=== PATIENT | female | born 1960 ===

== ENCOUNTER 2018-06-17 02:44 | Observation (INO) | payer MEDICAID ==
[2018-06-17 02:45] VITALS: BMI 30.2
[2018-06-17] MEDS ORDERED: Sodium Chloride 0.9% 1,000 ML ONE ×3 (02:51→06:56)
[2018-06-17] MEDS ORDERED: Sodium Chloride 0.9% 1,000 ML IV ONE ×3 (03:03→04:04)
--- NOTE | 2018-06-17 03:13 | C.PDOC ---
History Of Present Illness 58 year old female presents to the ER with a complaint of lightheadedness and dizziness. Patient states she is scheduled for an endoscopy tomorrow, she took a laxative and had 15 episodes of diarrhea followed by copious amounts of watery fluids [employer]. Patient also reports she passed out and fell, injuring her sacral area. Denies fever, chills, weakness, numbness, or incontinence. Chief Complaint (Nursing): Dizziness/Lightheaded History Per: Patient History/Exam Limitations: no limitations Onset/Duration Of Symptoms: Hrs Seizure Or Post-ictal Symptoms: None Possible Causative Factor(s): Other (Laxative) Fall Associated With With Symptoms: Yes, Positive Injury Recent travel outside of the [place]: No - Symptoms Of CVA Associated Symptoms: denies: Impaired Speech, Seizure Activity, New Vision Deficit(Left), New Vision Deficit(Right), Decreased Ability To Walk, New Confusion Past Medical History Reviewed: Historical Data, Nursing Documentation, Vital Signs - Medical History PMH: Anxiety, HTN Denies: Chronic Kidney Disease - [facility] TRANSURETH BLADD BIOPSY (12/06/13) URETHRAL DILATION (12/06/13) Family History: States: Unknown Family Hx - Social History Hx Tobacco Use: No Hx Alcohol Use: No Hx Substance Use: No - Immunization History Hx Tetanus Toxoid Vaccination: Yes Hx Influenza Vaccination: Yes Hx Pneumococcal Vaccination: Yes Review Of Systems Constitutional: Negative for: Fever, Chills Cardiovascular: Positive for: Light Headedness. Negative for: Chest Pain, Palpitations Respiratory: Negative for: Cough, Shortness of Breath Gastrointestinal: Negative for: Nausea, Vomiting Genitourinary: Negative for: Dysuria, Incontinence, Hematuria Neurological: Positive for: Dizziness. Negative for: Weakness, Numbness Physical Exam - Physical Exam Appears: Non-toxic Skin: Warm, Dry Head: Atraumatic, Normacephalic Eye(s): bilateral: Normal Inspection, PERRL, EOMI Nose: Normal Oral Mucosa: Moist Neck: Normal, No Midline Cervical Tenderness, No Paracervical Tenderness, Supple Chest: Symmetrical, No Tenderness Cardiovascular: Rhythm Regular Respiratory: Normal Breath Sounds, No Rales, No Rhonchi, No Wheezing Gastrointestinal/Abdominal: Soft, No Tenderness Back: Other (Tenderness of sacral area, no deformity) Extremity: Normal ROM (x4), Other (Small bruise on left elbow) Neurological/Psych: Oriented x3, Normal Speech Gait: Steady ED Course And Treatment - Laboratory Results Result Diagrams: 06/17/18 03:32 06/17/18 03:32 ECG: Interpreted By Me, Viewed By Me ECG Rhythm: Sinus Rhythm ECG Interpretation: Normal, No Acute Changes Interpretation Of ECG: NSR, normal tracings O2 Sat by Pulse Oximetry: 99 (Room air) Pulse Ox Interpretation: Normal - Radiology CXR: Interpreted by Me, Viewed By Me CXR Interpretation: Yes: No Acute Disease. No: Infiltrates - Other Rad sacro coccyx X-Ray: Interpreted by Me, Viewed By Me Interpretation: no fracture Progress Note: CT head, EKG, blood work, CXR, urinalysis, and sacrum x-ray ordered. IV fluids and toradol administered. Disposition Discussed With DrPablo: Iqra Le Counseled Patient/Family Regarding: Diagnosis - Disposition Referrals: [facility] [Outside] Disposition: HOME/ ROUTINE Disposition Time: 06:11 Condition: STABLE Forms: [facility] (Japanese) - POA Present On Arrival: None - Clinical Impression Clinical Impression: Dizziness, Hypotension due to hypovolemia, Syncope - Scribe Statement The provider has reviewed the documentation as recorded by the Scribe Joao Wilcox All medical record entries made by the Scribe were at my direction and personally dictated by me. I have reviewed the chart and agree that the record accurately reflects my personal performance of the history, physical exam, medical decision making, and the department course for this patient. I have also personally directed, reviewed, and agree with the discharge instructions and disposition.
[2018-06-17 03:35] LABS: BASO % 0.6 % (0.0-2.0); EOS # 0.2 K/uL (0.0-0.7); EOS % 2.6 % (0.0-4.0); HEMOGLOBIN 14.4 g/dL (11.0-16.0); LYMPH % 36.2 % (20.0-40.0); MEAN CELL VOLUME 97.9 fL (81.0-99.0); MEAN CORPUSCULAR HGB CONC 33.6 g/dL (33.0-37.0); MONO # 0.7 K/uL (0.0-0.8); MONO % 8.6 % (0.0-10.0); NEUT # 4.3 K/uL (1.8-7.0); NRBC % 0.1 % (0.0-2.0); RBC 4.36 Mil/uL (3.80-5.20); RED CELL DISTRIBUTION WIDTH 13.7 % (11.5-14.5); WHITE BLOOD COUNT 8.3 K/uL (4.8-10.8)
[2018-06-17 03:47] LABS: ALB/GLOB RATIO 1.2 (1.0-2.1); ALT/SGPT 33 U/L (9-52); AST/SGOT 45 U/L (14-36); BLOOD UREA NITROGEN 20 mg/dL (7-17); CALCIUM 9.6 mg/dl (8.6-10.4); GFR NON-AFRICAN AMERICAN 57
[2018-06-17] MEDS ORDERED: Potassium Chloride 20 mEq 100 ML ONE (04:15)
[2018-06-17] MEDS ORDERED: Bacitracin 500 Units/gm Oint Foilpak UD ONE (04:38)
[2018-06-17 06:25] LABS: BLOOD UREA NITROGEN 20 mg/dL (7-17); CALCIUM 8.3 mg/dl (8.6-10.4); GFR NON-AFRICAN AMERICAN > 60
--- NOTE | 2018-06-17 07:16 | CP.PCM.PN ---
Subjective - Date & Time of Evaluation Date of Evaluation: 06/17/18 Time of Evaluation: 07:16 - Subjective Subjective: Medicine Progress Note - Dr Seamus Le's service Patient is a 58 year old female with past medical history of L breast cancer s/p radiation, hypertension, arthritis who presented to the emergency department after having a syncopal episode at home. Patient states that she was woke up from sleep and on the way to the bathroom she passed out. Prior to the episode, she admitted to having lightheadedness and dizziness. She reports LOC but unsure whether she hit her head. Unclear how long she was down for. She reports that earlier in the evening she took go-lytely and ducolax in preparation for colonoscopy that was scheduled for today ay [facility]. She also reports having 3 episodes mid-sternal chest pain earlier in the day yesterday. Currently she reports that dizziness has improved. Feels like she is spinning. Denies fevers, chills, headaches, cp, palpitations, sob, abdominal pain, urinary symptoms. Allergies: NKDA Medications: Percocet, Losartan/HCTZ 50-12.5mg PO daily, Klonopin 0.25 prn Medical History: L breast cancer s/p radiation, hypertension, arthritis, anxiety Surgical History: C/S, D+C, Back surgery Social History: Denies alcohol, tobacco, drug use Family History: Father -prostate cancer; Sister - breast cancer, Mother - DM, HTN Objective - Vital Signs/Intake and Output Vital Signs (last 24 hours): Temp Pulse Resp BP Pulse Ox 97.7 F 89 12 125/62 99 06/17/18 02:53 06/17/18 06:12 06/17/18 06:12 06/17/18 06:12 06/17/18 06:12 - Medications Medications: Current Medications Enoxaparin Sodium (Lovenox) 40 mg SC DAILY WES Sodium Chloride (Sodium Chloride 0.9%) 1,000 mls @ 100 mls/hr IV .Q10H ONE Stop: 06/17/18 13:03 Last Admin: 06/17/18 06:55 Dose: 100 mls/hr Pantoprazole Sodium (Protonix Ec Tab) 40 mg PO DAILY WES - Labs Labs: 06/17/18 03:32 06/17/18 05:36 - Constitutional Appears: Well, No Acute Distress - Head Exam Head Exam: ATRAUMATIC, NORMAL INSPECTION - Eye Exam Eye Exam: EOMI, Normal appearance Pupil Exam: NORMAL ACCOMODATION - ENT Exam ENT Exam: Mucous Membranes Moist - Neck Exam Neck Exam: Full ROM - Respiratory Exam Respiratory Exam: Clear to Ausculation Bilateral, NORMAL BREATHING PATTERN. absent: Rales, Rhonchi, Wheezes - Cardiovascular Exam Cardiovascular Exam: REGULAR RHYTHM, +S1, +S2 - GI/Abdominal Exam GI & Abdominal Exam: Soft, Normal Bowel Sounds. absent: Guarding, Rigid, Tenderness - Extremities Exam Extremities Exam: Normal Inspection. absent: Calf Tenderness - Neurological Exam Neurological Exam: Alert, Awake, Oriented x3 - Psychiatric Exam Psychiatric exam: Normal Affect, Normal Mood - Skin Skin Exam: Dry, Normal Color, Warm Assessment and Plan - Assessment and Plan (Free Text) Assessment: Syncope, r/o Cardioneurogenic causes -Monitor on telemetry -EKG: NSR 71bpm, no ST-T wave changes -Troponins negative x 2 -CT head: suspect minimal chronic periventricular white matter ischemic changes (see full report) -Sacrum and coccyx xray - no fracture or dislocation -Echocardiogram ordered, Brain MRI and EEG ordered -Cardiology on consult, Dr Reinoso, help appreciated -Neurology on consult, Dr Ogden, help appreciated -Physical therapy ordered Diarrhea -Likely secondary to laxative use -Imodium 2mg ordered -Continue to monitor Hypokalemia -Likely secondary to GI loses -Replete as needed GI/DVT ppx: -Protonix 40mg PO daily -Lovenox 40mg SC daily Plan discussed with Dr Rey Perez DO PGY-2
[2018-06-17 08:09] LABS: HDL CHOLESTEROL 42 mg/dL (30-70)
[2018-06-17 08:17] VITALS: RESP 20
[2018-06-17 08:20] LABS: LDL CHOLESTEROL 114 mg/dL (0-129)
[2018-06-17 08:45] VITALS: O2SAT 98
[2018-06-17 08:59] LABS: PROLACTIN 20.6 ng/mL (3.0-18.9)
[2018-06-17] MEDS: Enoxaparin 40 mg Syringe SC SCH (09:07)
[2018-06-17] MEDS: Pantoprazole 40 mg EC Tab PO SCH (09:07)
--- NOTE | 2018-06-17 09:52 | RAD ---
Date of service: 06/17/2018 PROCEDURE: CHEST RADIOGRAPH, 1 VIEW HISTORY: SOB COMPARISON: 08/27/2005 FINDINGS: LUNGS: Clear. PLEURA: No pneumothorax or pleural fluid seen. CARDIOVASCULAR: There is absence of aortic atherosclerotic calcification on x-ray. Heart size within normal limits. No significant appearing pulmonary venous congestion. OSSEOUS STRUCTURES: Thoracic spondylosis. Bilateral shoulder arthrosis. VISUALIZED UPPER ABDOMEN: Right upper quadrant post cholecystectomy clips present OTHER FINDINGS: None. IMPRESSION: No acute cardiopulmonary pathology noted.
--- NOTE | 2018-06-17 09:54 | RAD ---
Date of service: 06/17/2018 PROCEDURE: Radiographs of the Sacrum and Coccyx HISTORY: injury COMPARISON: None available. TECHNIQUE: Frontal and lateral views of the sacrum and coccyx FINDINGS: BONES: Sacrum and coccyx unremarkable. No fracture or focal lesion. L5-S1 disc space narrowing with prominent marginal osteophytosis especially on the left side. SACROILIAC JOINTS: Unremarkable. Pubic symphyseal joints normal. Mild bilateral hip arthrosis. OTHER FINDINGS: Few right hemipelvic phleboliths noted. IMPRESSION: No fracture or dislocation. Senescent changes as above.
--- NOTE | 2018-06-17 09:55 | CT ---
Date of service: 06/17/2018 PROCEDURE: CT HEAD WITHOUT CONTRAST. HISTORY: passed out COMPARISON: The TECHNIQUE: Axial computed tomography images were obtained through the head/brain without intravenous contrast. Radiation dose: Total exam DLP = 1035.11 mGy-cm. This CT exam was performed using one or more of the following dose reduction techniques: Automated exposure control, adjustment of the mA and/or kV according to patient size, and/or use of iterative reconstruction technique. FINDINGS: HEMORRHAGE: No intracranial hemorrhage. BRAIN: Suspect minimal chronic periventricular white matter ischemic changes. Mild generalized volume loss. VENTRICLES: Unremarkable. No hydrocephalus. CALVARIUM: Unremarkable. PARANASAL SINUSES: Unremarkable as visualized. No significant inflammatory changes. MASTOID AIR CELLS: Unremarkable as visualized. No inflammatory changes. OTHER FINDINGS: None. IMPRESSION: Suspect minimal chronic periventricular white matter ischemic changes. Mild generalized volume loss.
--- NOTE | 2018-06-17 11:09 | CARD ---
APPROVED REPORT Date of service: 06/17/2018 EKG Measurement Heart [id number] <Conclusion> Normal sinus rhythm Normal ECG
--- NOTE | 2018-06-17 12:33 | CARD ---
APPROVED REPORT Date of service: 06/17/2018 EXAM: Two-dimensional and M-mode echocardiogram with Doppler and color Doppler. Other Information Quality : GoodRhythm : INDICATION Chest Pain 2D DIMENSIONS IVSd0.9 (0.7-1.1cm)LVDd4.0 (3.9-5.9cm) PWd1.0 (0.7-1.1cm)LA Wvpmiq50 (18-58mL) LVDs2.3 (2.5-4.0cm)FS (%) 41.4 % LVEF (%)72.9 (>50%)LVEF (Schaeffer's)69 % IVC0.00 cm M-Mode DIMENSIONS RVDd2.46 (2.1-3.2cm)Left Atrium (MM)3.65 (2.5-4.0cm) IVSd0.73 (0.7-1.1cm)Aortic Root2.32 (2.2-3.7cm) LVDd4.68 (4.0-5.6cm)Aortic Cusp Exc.1.79 (1.5-2.0cm) PWd0.70 (0.7-1.1cm)FS (%) 43 % LVDs2.67 (2.0-3.8cm)LVEF (%)74 (>50%) Mitral Valve MV E Hggypmni92.0cm/sMV A Hwokwzce595.3cm/sE/A ratio0.7 TDI Lateral E' Peak V9.71cm/sMedial E' Peak V9.13cm/sE/Lateral E'9.9 E/Medial E'10.5 Tricuspid Valve TR Peak Pepkxpgc104xg/sTR Peak Gr.95ctFeDPYU34kdBf <Conclusion> normal size la,lv & ra rv. normal lv wall motion,thickness,systolic & diastolic funciton with lvef of more than 70%. normal aortic,mitral,tv & pv. trace mr,mild tr with normal pulmonary systolic pressures of 30 mm of hg. no pericardial effusion. normal size ivc & aortic root. atrial septum is aneurysmal but no shunt seen.
--- NOTE | 2018-06-17 12:40 | MRI ---
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 TECHNIQUE: Multiplanar, multisequence MR images of the brain were obtained without intravenous contrast enhancement. FINDINGS: Study is limited by motion artifact. HEMORRHAGE: No acute parenchymal, subarachnoid nor extra-axial hemorrhage. No evidence of hemosiderin deposition is identified on gradient echo weighted sequence. DWI: No evidence of an acute or early subacute infarction seen on diffusion imaging. BRAIN PARENCHYMA: There appears to be a very minimal chronic periventricular white matter ischemic changes. No evidence of obvious parenchymal nor extra-axial masses or collections seen on this noncontrast study. VENTRICLES: Unremarkable. No hydrocephalus. CRANIUM: Unremarkable. ORBITS: Grossly unremarkable. PARANASAL SINUSES/MASTOIDS: There is partial opacification left mastoid air complex. VASCULAR SYSTEM: Visualized major vascular flow voids at skull base patent.. OTHER FINDINGS: None. IMPRESSION: Very limited motion degraded study. No evidence of acute intracranial hemorrhage or acute infarct seen. Minimal chronic periventricular white matter ischemic changes.
[2018-06-17 14:31] LABS: CK-MB 0.75 ng/mL (0.0-3.38); TROPONIN I 0.013 ng/mL (0.00-0.120)
--- NOTE | 2018-06-17 17:50 | CP.PCM.HP ---
Past Patient History - Infectious Disease Hx of Infectious Diseases: None - Past Medical History & Family History Past Medical History?: Yes - Past Social History Smoking Status: Never Smoked - CARDIAC Hx Hypertension: Yes - PULMONARY Hx Respiratory Disorders: No - NEUROLOGICAL Hx Neurological Disorder: No - HEENT Hx HEENT Problems: No - RENAL Hx Chronic Kidney Disease: No - ENDOCRINE/METABOLIC Hx Endocrine Disorders: No - HEMATOLOGICAL/ONCOLOGICAL Hx Blood Disorders: Yes (DVT RT LEG) Hx Cancer: Yes (jun 2013 breast) Hx Chemotherapy: Yes (CURRENTLY TAKING TAMOXIFEN, hx of radiation for 33 days) Other/Comment: left leg blood clot - INTEGUMENTARY Hx Dermatological Problems: No - MUSCULOSKELETAL/RHEUMATOLOGICAL Hx Musculoskeletal Disorders: Yes Hx Falls: No Hx Herniated Disk: Yes (cervical lumbar) - GASTROINTESTINAL Hx Gastrointestinal Disorders: No - GENITOURINARY/GYNECOLOGICAL Hx Genitourinary Disorders: Yes (UTERINE POLYP) Hx Urinary Tract Infection: Yes Other/Comment: frequency - PSYCHIATRIC Hx Anxiety: Yes Hx Substance Use: No - SURGICAL HISTORY Hx Surgeries: Yes Hx Section: Yes Hx Musculoskeletal Surgery: Yes (lumbar disectomy 1995) Other/Comment: cystoscopy left breast lumpectomy jun 2013, UTERINE POLYPECTOMY - ANESTHESIA Hx Anesthesia: Yes Hx Anesthesia Reactions: Yes (VOMITING) Hx Malignant Hyperthermia: No Meds Allergies/Adverse Reactions: Allergies Allergy/AdvReac Type Severity Reaction Status Date / Time No Known Allergies Allergy Verified 05/01/16 06:56 Physical Exam - Constitutional Appears: Well - Head Exam Head Exam: ATRAUMATIC, NORMAL INSPECTION, NORMOCEPHALIC - Eye Exam Eye Exam: EOMI, Normal appearance, PERRL Pupil Exam: NORMAL ACCOMODATION, PERRL - ENT Exam ENT Exam: Mucous Membranes Moist, Normal Exam - Neck Exam Neck exam: Positive for: Normal Inspection - Respiratory Exam Respiratory Exam: Decreased Breath Sounds - Cardiovascular Exam Cardiovascular Exam: REGULAR RHYTHM, +S1, +S2 - GI/Abdominal Exam GI & Abdominal Exam: Diminished Bowel Sounds, Soft - Rectal Exam Rectal Exam: Deferred Results - Vital Signs Recent Vital Signs: Last Vital Signs Temp 97.6 F 06/17/18 15:10 Pulse 84 06/17/18 15:10 Resp 20 06/17/18 15:10 BP 124/72 06/17/18 15:10 Pulse Ox 98 06/17/18 15:10 - Labs Result Diagrams: 06/17/18 03:32 06/17/18 05:36 Labs: Laboratory Results - last 24 hr 06/17/18 06/17/18 06/17/18 03:32 03:32 05:36 WBC 8.3 D RBC 4.36 Hgb 14.4 D Hct 42.7 MCV 97.9 MCH 33.0 H MCHC 33.6 RDW 13.7 Plt Count 257 MPV 10.0 Neut % (Auto) 52.0 Lymph % (Auto) 36.2 [place] % (Auto) 8.6 Eos % (Auto) 2.6 Baso % (Auto) 0.6 Neut # (Auto) 4.3 Lymph # (Auto) 3.0 [place] # (Auto) 0.7 Eos # (Auto) 0.2 Baso # (Auto) 0.0 Sodium 138 136 Potassium 2.8 L 3.9 Chloride 97 L 103 Carbon Dioxide 27 25 Anion Gap 17 13 BUN 20 H 20 H Creatinine 1.0 0.8 Est GFR ( Amer) > 60 > 60 Est GFR (Non-Af Amer) 57 > 60 Random Glucose 118 H D 87 D Hemoglobin A1c Calcium 9.6 8.3 L Phosphorus 3.8 Magnesium 2.1 Total Bilirubin 0.8 AST 45 H ALT 33 Alkaline Phosphatase 105 Total Creatine Kinase CK-MB (Mass) Troponin I < 0.0120 Total Protein 9.1 H Albumin 5.0 D Globulin 4.2 H Albumin/Globulin Ratio 1.2 Triglycerides 93 Cholesterol 189 LDL Cholesterol Direct 114 HDL Cholesterol 42 Prolactin 20.6 H 06/17/18 06/17/18 08:00 14:01 WBC RBC Hgb Hct MCV MCH MCHC RDW Plt Count MPV Neut % (Auto) Lymph % (Auto) [place] % (Auto) Eos % (Auto) Baso % (Auto) Neut # (Auto) Lymph # (Auto) [place] # (Auto) Eos # (Auto) Baso # (Auto) Sodium Potassium Chloride Carbon Dioxide Anion Gap BUN Creatinine Est GFR ( Amer) Est GFR (Non-Af Amer) Random Glucose Hemoglobin A1c 5.8 Calcium Phosphorus Magnesium Total Bilirubin AST ALT Alkaline Phosphatase Total Creatine Kinase 94 CK-MB (Mass) 0.75 Troponin I 0.0130 Total Protein Albumin Globulin Albumin/Globulin Ratio Triglycerides Cholesterol LDL Cholesterol Direct HDL Cholesterol Prolactin
[2018-06-17] MEDS ORDERED: Oxycodone/Acetaminophen 5/325 mg Tab PO PRN (20:27)
[2018-06-17 21:17] LABS: CK-MB 0.79 ng/mL (0.0-3.38)
--- NOTE | 2018-06-18 05:42 | EEG ---
DATE: 06/17/2018 This is a 16-channel electroencephalogram of awake and drowsy adult. During the study, photic stimulation was performed, hyperventilation was not performed. The resting electroencephalogram consists of 20 to 30 microvolts, diffuse 9 to 11 Hz alpha activities seen. Intermittent movement artifact contaminated the background rhythm. There are some paroxysmal activities seen in right occipital leads consistent with epileptiform discharges. Please correlate the findings with the neurological and radiological studies. Bentley Ogden MD [facility] # [id number]
[2018-06-18 05:59] LABS: SQUAMOUS EPITHIAL 2 /hpf (0-5); URINE BILIRUBIN NEGATIVE (NEGATIVE); URINE BLOOD NEGATIVE (NEGATIVE); URINE CLARITY Hazy (Clear); URINE COLOR Yellow (YELLOW); URINE GLUCOSE (UA) NORMAL (Normal); URINE LEUKOCYTE ESTERASE NEG Leu/uL (Negative); URINE PROTEIN NEGATIVE (NEGATIVE); URINE UROBILINOGEN NORMAL mg/dL (0.2-1.0)
--- NOTE | 2018-06-18 07:16 | CP.PCM.CON ---
History of Present Illness - History of Present Illness History of Present Illness: CONSULTATION DICTATED NEW SYNCOPE NO WITNESSED SEIZURE ACTIVITIES EEG - LEFT OCCIPIATAL LEADS PAROXYSMAL ACTIVITIES ?? SLEEP DEPRIVATION /ELECTROLYTE IMBALANCE WILL START KEPPRA AND FOLLOW UP HER OP MRI BRAIN NEGATIVE Past Patient History - Infectious Disease Hx of Infectious Diseases: None - Past Medical History & Family History Past Medical History?: Yes - Past Social History Smoking Status: Never Smoked - CARDIAC Hx Hypertension: Yes - PULMONARY Hx Respiratory Disorders: No - NEUROLOGICAL Hx Neurological Disorder: No - HEENT Hx HEENT Problems: No - RENAL Hx Chronic Kidney Disease: No - ENDOCRINE/METABOLIC Hx Endocrine Disorders: No - HEMATOLOGICAL/ONCOLOGICAL Hx Blood Disorders: Yes (DVT RT LEG) Hx Cancer: Yes (jun 2013 breast) Hx Chemotherapy: Yes (CURRENTLY TAKING TAMOXIFEN, hx of radiation for 33 days) Other/Comment: left leg blood clot - INTEGUMENTARY Hx Dermatological Problems: No - MUSCULOSKELETAL/RHEUMATOLOGICAL Hx Musculoskeletal Disorders: Yes Hx Falls: No Hx Herniated Disk: Yes (cervical lumbar) - GASTROINTESTINAL Hx Gastrointestinal Disorders: No - GENITOURINARY/GYNECOLOGICAL Hx Genitourinary Disorders: Yes (UTERINE POLYP) Hx Urinary Tract Infection: Yes Other/Comment: frequency - PSYCHIATRIC Hx Anxiety: Yes Hx Substance Use: No - SURGICAL HISTORY Hx Surgeries: Yes Hx Section: Yes Hx Musculoskeletal Surgery: Yes (lumbar disectomy 1995) Other/Comment: cystoscopy left breast lumpectomy jun 2013, UTERINE POLYPECTOMY - ANESTHESIA Hx Anesthesia: Yes Hx Anesthesia Reactions: Yes (VOMITING) Hx Malignant Hyperthermia: No Meds Allergies/Adverse Reactions: Allergies Allergy/AdvReac Type Severity Reaction Status Date / Time No Known Allergies Allergy Verified 05/01/16 06:56 - Medications Medications: Current Medications Celecoxib (Celebrex) 200 mg PO DAILY [facility] Clonazepam (Klonopin) 0.5 mg PO BID [facility]1983 Enoxaparin Sodium (Lovenox) 40 mg SC DAILY [facility] Last Admin: 06/17/18 09:07 Dose: 40 mg Hydrochlorothiazide (Microzide) 12.5 mg PO DAILY [facility] Ibuprofen (Motrin Tab) 600 mg PO TID PRN PRN Reason: Pain, moderate (4-7) Levetiracetam (Keppra) 500 mg PO BID [facility]1983 Losartan Potassium (Cozaar) 50 mg PO DAILY [facility] Oxycodone/Acetaminophen (Percocet 5/325 Mg Tab) 1 tab PO Q4H PRN PRN Reason: Pain, moderate (4-7) Stop: 06/20/18 20:28 Pantoprazole Sodium (Protonix Ec Tab) 40 mg PO DAILY [facility] Last Admin: 06/17/18 09:07 Dose: 40 mg Pneumococcal Polyvalent Vaccine (Pneumovax 23 Vaccine) 0.5 ml IM .ONCE ONE Stop: 06/19/18 14:01 Tamoxifen Citrate (Nolvadex) 20 mg PO DAILY [facility] Results - Vital Signs Recent Vital Signs: Last Vital Signs Temp 97.9 F 06/18/18 04:00 Pulse 79 06/18/18 04:00 Resp 20 06/18/18 04:00 BP 96/58 L 06/18/18 04:00 Pulse Ox 98 06/18/18 04:00 - Labs Result Diagrams: 06/17/18 03:32 06/17/18 05:36 Labs: Laboratory Results - last 24 hr 06/17/18 06/17/18 06/17/18 05:36 08:00 14:01 Sodium 136 Potassium 3.9 Chloride 103 Carbon Dioxide 25 Anion Gap 13 BUN 20 H Creatinine 0.8 Est GFR ( Amer) > 60 Est GFR (Non-Af Amer) > 60 Random Glucose 87 D Hemoglobin A1c 5.8 Calcium 8.3 L Phosphorus 3.8 Magnesium 2.1 Total Creatine Kinase 94 CK-MB (Mass) 0.75 Troponin I 0.0130 Triglycerides 93 Cholesterol 189 LDL Cholesterol Direct 114 HDL Cholesterol 42 Prolactin 20.6 H Urine Color Urine Clarity Urine pH Ur Specific [place] Urine Protein Urine Glucose (UA) Urine Ketones Urine Blood Urine Nitrate Urine Bilirubin Urine Urobilinogen Ur Leukocyte Esterase Urine WBC (Auto) Urine RBC (Auto) Ur Squamous Epith Cells 06/17/18 06/18/18 20:38 05:45 Sodium Potassium Chloride Carbon Dioxide Anion Gap BUN Creatinine Est GFR ( Amer) Est GFR (Non-Af Amer) Random Glucose Hemoglobin A1c Calcium Phosphorus Magnesium Total Creatine Kinase 96 CK-MB (Mass) 0.79 Troponin I < 0.0120 Triglycerides Cholesterol LDL Cholesterol Direct HDL Cholesterol Prolactin Urine Color Yellow Urine Clarity Hazy Urine pH 6.0 Ur Specific [place] 1.013 Urine Protein Negative Urine Glucose (UA) Normal Urine Ketones Negative Urine Blood Negative Urine Nitrate Negative Urine Bilirubin Negative Urine Urobilinogen Normal Ur Leukocyte Esterase Neg Urine WBC (Auto) 3 Urine RBC (Auto) < 1 Ur Squamous Epith Cells 2
--- NOTE | 2018-06-18 07:36 | CP.PCM.CON ---
History of Present Illness - History of Present Illness History of Present Illness: Consultation for evaluation of syncope HPI: 58-year-old female who was scheduled to undergo endoscopy presented with complaints and lightheadedness and dizziness after she took the leg status had 15-20 episodes of diarrhea. Patient started getting lethargic and dizzy and had a near syncopal episode injuring her sacral area on initial presentation she was started on IV fluid hydration echocardiogram was done which showed hyperdynamic LV symptoms started to improve after she was given IV fluid hydration. Past medical history significant for hypertension and anxiety. Past surgical history significant for transurethral bladder biopsy along with urethral dilatation. Review of Systems - Review of Systems Systems not reviewed;Unavailable: Acuity of Condition - Constitutional Constitutional: As Per HPI - EENT Eyes: As Per HPI Ears: As Per HPI Nose/Mouth/Throat: As Per HPI - Breasts Breasts: As Per HPI - Cardiovascular Cardiovascular: As Per HPI - Respiratory Respiratory: As Per HPI - Gastrointestinal Gastrointestinal: As Per HPI - Genitourinary Genitourinary: As Per HPI - Reproductive: Female Reproductive:Female: As Per HPI - Menstruation Menstruation: As Per HPI - Musculoskeletal Musculoskeletal: As Per HPI - Integumentary Integumentary: As Per HPI - Neurological Neurological: As Per HPI - Psychiatric Psychiatric: As Per HPI - Endocrine Endocrine: As Per HPI - Hematologic/Lymphatic Hematologic: As Per HPI Past Patient History - Infectious Disease Hx of Infectious Diseases: None - Past Medical History & Family History Past Medical History?: Yes - Past Social History Smoking Status: Never Smoked - CARDIAC Hx Hypertension: Yes - PULMONARY Hx Respiratory Disorders: No - NEUROLOGICAL Hx Neurological Disorder: No - HEENT Hx HEENT Problems: No - RENAL Hx Chronic Kidney Disease: No - ENDOCRINE/METABOLIC Hx Endocrine Disorders: No - HEMATOLOGICAL/ONCOLOGICAL Hx Blood Disorders: Yes (DVT RT LEG) Hx Cancer: Yes (jun 2013 breast) Hx Chemotherapy: Yes (CURRENTLY TAKING TAMOXIFEN, hx of radiation for 33 days) Other/Comment: left leg blood clot - INTEGUMENTARY Hx Dermatological Problems: No - MUSCULOSKELETAL/RHEUMATOLOGICAL Hx Musculoskeletal Disorders: Yes Hx Falls: No Hx Herniated Disk: Yes (cervical lumbar) - GASTROINTESTINAL Hx Gastrointestinal Disorders: No - GENITOURINARY/GYNECOLOGICAL Hx Genitourinary Disorders: Yes (UTERINE POLYP) Hx Urinary Tract Infection: Yes Other/Comment: frequency - PSYCHIATRIC Hx Anxiety: Yes Hx Substance Use: No - SURGICAL HISTORY Hx Surgeries: Yes Hx Section: Yes Hx Musculoskeletal Surgery: Yes (lumbar disectomy 1995) Other/Comment: cystoscopy left breast lumpectomy jun 2013, UTERINE POLYPECTOMY - ANESTHESIA Hx Anesthesia: Yes Hx Anesthesia Reactions: Yes (VOMITING) Hx Malignant Hyperthermia: No Meds Home Medications: Home Medication List Medication Instructions Recorded Confirmed Type levETIRAcetam [Keppra] 500 mg PO BID #60 tab 06/18/18 Rx Allergies/Adverse Reactions: Allergies Allergy/AdvReac Type Severity Reaction Status Date / Time No Known Allergies Allergy Verified 05/01/16 06:56 - Medications Medications: Current Medications Celecoxib (Celebrex) 200 mg PO DAILY [facility] Clonazepam (Klonopin) 0.5 mg PO BID [facility] Enoxaparin Sodium (Lovenox) 40 mg SC DAILY [facility] Last Admin: 06/17/18 09:07 Dose: 40 mg Hydrochlorothiazide (Microzide) 12.5 mg PO DAILY [facility] Ibuprofen (Motrin Tab) 600 mg PO TID PRN PRN Reason: Pain, moderate (4-7) Levetiracetam (Keppra) 500 mg PO BID [facility] Losartan Potassium (Cozaar) 50 mg PO DAILY [facility] Oxycodone/Acetaminophen (Percocet 5/325 Mg Tab) 1 tab PO Q4H PRN PRN Reason: Pain, moderate (4-7) Stop: 06/20/18 20:28 Pantoprazole Sodium (Protonix Ec Tab) 40 mg PO DAILY [facility] Last Admin: 06/17/18 09:07 Dose: 40 mg Pneumococcal Polyvalent Vaccine (Pneumovax 23 Vaccine) 0.5 ml IM .ONCE ONE Stop: 06/19/18 14:01 Tamoxifen Citrate (Nolvadex) 20 mg PO DAILY [facility] Physical Exam - Constitutional Appears: Well - Head Exam Head Exam: ATRAUMATIC, NORMAL INSPECTION, NORMOCEPHALIC - Eye Exam Eye Exam: EOMI, Normal appearance, PERRL Pupil Exam: NORMAL ACCOMODATION, PERRL - ENT Exam ENT Exam: Mucous Membranes Dry, Normal Exam - Neck Exam Neck exam: Positive for: Normal Inspection - Respiratory Exam Respiratory Exam: Clear to Auscultation Bilateral, NORMAL BREATHING PATTERN - Cardiovascular Exam Cardiovascular Exam: REGULAR RHYTHM, RRR, +S1, +S2, Systolic Murmur - GI/Abdominal Exam GI & Abdominal Exam: Normal Bowel Sounds, Soft. absent: Tenderness - Extremities Exam Extremities exam: Positive for: normal inspection - Back Exam Back exam: NORMAL INSPECTION - Neurological Exam Neurological exam: Alert, CN II-XII Intact, Normal Gait, Oriented x3, Reflexes Normal - Psychiatric Exam Psychiatric exam: Normal Affect, Normal Mood - Skin Skin Exam: Dry, Intact, Normal Color, Warm Results - Vital Signs Recent Vital Signs: Last Vital Signs Temp 97.9 F 06/18/18 04:00 Pulse 79 06/18/18 04:00 Resp 20 06/18/18 04:00 BP 96/58 L 06/18/18 04:00 Pulse Ox 98 06/18/18 04:00 - Labs Result Diagrams: 06/18/18 11:08 06/18/18 11:08 Labs: Laboratory Results - last 24 hr 06/17/18 06/17/18 06/17/18 05:36 08:00 14:01 Sodium 136 Potassium 3.9 Chloride 103 Carbon Dioxide 25 Anion Gap 13 BUN 20 H Creatinine 0.8 Est GFR ( Amer) > 60 Est GFR (Non-Af Amer) > 60 Random Glucose 87 D Hemoglobin A1c 5.8 Calcium 8.3 L Phosphorus 3.8 Magnesium 2.1 Total Creatine Kinase 94 CK-MB (Mass) 0.75 Troponin I 0.0130 Triglycerides 93 Cholesterol 189 LDL Cholesterol Direct 114 HDL Cholesterol 42 Prolactin 20.6 H Urine Color Urine Clarity Urine pH Ur Specific Enders Urine Protein Urine Glucose (UA) Urine Ketones Urine Blood Urine Nitrate Urine Bilirubin Urine Urobilinogen Ur Leukocyte Esterase Urine WBC (Auto) Urine RBC (Auto) Ur Squamous Epith Cells 06/17/18 06/18/18 20:38 05:45 Sodium Potassium Chloride Carbon Dioxide Anion Gap BUN Creatinine Est GFR ( Amer) Est GFR (Non-Af Amer) Random Glucose Hemoglobin A1c Calcium Phosphorus Magnesium Total Creatine Kinase 96 CK-MB (Mass) 0.79 Troponin I < 0.0120 Triglycerides Cholesterol LDL Cholesterol Direct HDL Cholesterol Prolactin Urine Color Yellow Urine Clarity Hazy Urine pH 6.0 Ur Specific Enders 1.013 Urine Protein Negative Urine Glucose (UA) Normal Urine Ketones Negative Urine Blood Negative Urine Nitrate Negative Urine Bilirubin Negative Urine Urobilinogen Normal Ur Leukocyte Esterase Neg Urine WBC (Auto) 3 Urine RBC (Auto) < 1 Ur Squamous Epith Cells 2 Assessment & Plan (1) Syncope Assessment and Plan: 2' to diarrhea and dehydration IVF hydration Status: Acute (2) Dizziness Assessment and Plan: IVF hydration echo shows hyperdynamic LV Status: Acute (3) Hypotension due to hypovolemia Status: Acute
[2018-06-18 08:15] VITALS: PULSE 86
[2018-06-18 08:45] VITALS: BP 125/71; TEMP 98.9
--- NOTE | 2018-06-18 09:55 | CP.PCM.PN ---
Subjective - Date & Time of Evaluation Date of Evaluation: 06/18/18 Time of Evaluation: 09:50 - Subjective Subjective: Medicine Note for Dr. Hector Le's Service Patient was seen and examined at bedside. Patient reports she is doing well. Denies fevers, chills, headaches, cp, palpitations, sob, abdominal pain, urinary symptoms. Objective - Vital Signs/Intake and Output Vital Signs (last 24 hours): Temp Pulse Resp BP Pulse Ox 98.9 F 86 20 125/71 98 06/18/18 07:50 06/18/18 08:13 06/18/18 07:50 06/18/18 07:50 06/18/18 08:13 - Medications Medications: Current Medications Celecoxib (Celebrex) 200 mg PO DAILY [facility] Clonazepam (Klonopin) 0.5 mg PO BID [facility] Enoxaparin Sodium (Lovenox) 40 mg SC DAILY [facility] Last Admin: 06/17/18 09:07 Dose: 40 mg Hydrochlorothiazide (Microzide) 12.5 mg PO DAILY [facility] Ibuprofen (Motrin Tab) 600 mg PO TID PRN PRN Reason: Pain, moderate (4-7) Levetiracetam (Keppra) 500 mg PO BID [facility] Losartan Potassium (Cozaar) 50 mg PO DAILY [facility] Oxycodone/Acetaminophen (Percocet 5/325 Mg Tab) 1 tab PO Q4H PRN PRN Reason: Pain, moderate (4-7) Stop: 06/20/18 20:28 Pantoprazole Sodium (Protonix Ec Tab) 40 mg PO DAILY [facility] Last Admin: 06/17/18 09:07 Dose: 40 mg Pneumococcal Polyvalent Vaccine (Pneumovax 23 Vaccine) 0.5 ml IM .ONCE ONE Stop: 06/19/18 14:01 Tamoxifen Citrate (Nolvadex) 20 mg PO DAILY [facility] - Labs Labs: 06/17/18 03:32 06/17/18 05:36 - Additional Findings Additional findings: - Constitutional Appears: Well, No Acute Distress - Head Exam Head Exam: ATRAUMATIC, NORMAL INSPECTION - Eye Exam Eye Exam: EOMI, Normal appearance Pupil Exam: NORMAL ACCOMODATION - ENT Exam ENT Exam: Mucous Membranes Moist - Neck Exam Neck Exam: Full ROM - Respiratory Exam Respiratory Exam: Clear to Ausculation Bilateral, NORMAL BREATHING PATTERN. absent: Rales, Rhonchi, Wheezes - Cardiovascular Exam Cardiovascular Exam: REGULAR RHYTHM, +S1, +S2 - GI/Abdominal Exam GI & Abdominal Exam: Soft, Normal Bowel Sounds. absent: Guarding, Rigid, Tenderness - Extremities Exam Extremities Exam: Normal Inspection. absent: Calf Tenderness - Neurological Exam Neurological Exam: Alert, Awake, Oriented x3 - Psychiatric Exam Psychiatric exam: Normal Affect, Normal Mood - Skin Skin Exam: Dry, Normal Color, Warm Assessment and Plan - Assessment and Plan (Free Text) Plan: Upon Admission: Patient is a 58 year old female with past medical history of L breast cancer s/p radiation, hypertension, arthritis who presented to the emergency department after having a syncopal episode at home. Patient states that she was woke up from sleep and on the way to the bathroom she passed out. Prior to the episode, she admitted to having lightheadedness and dizziness. She reports LOC but unsure whether she hit her head. Unclear how long she was down for. She reports that earlier in the evening she took go-lytely and ducolax in preparation for colonoscopy that was scheduled for today ay [facility] [place] [place]. She also reports having 3 episodes mid-sternal chest pain earlier in the day yesterday. Currently she reports that dizziness has improved. Feels like she is spinning. Denies fevers, chills, headaches, cp, palpitations, sob, abdominal pain, urinary symptoms. Allergies: NKDA Medications: Percocet, Losartan/HCTZ 50-12.5mg PO daily, Klonopin 0.25 prn Medical History: L breast cancer s/p radiation, hypertension, arthritis, anxiety Surgical History: C/S, D+C, Back surgery Social History: Denies alcohol, tobacco, drug use Family History: Father -prostate cancer; Sister - breast cancer, Mother - DM, HTN Throughout Hospital Course: Syncope, r/o Cardioneurogenic causes -Cardiology on consult, Dr Reinoso, help appreciated -Neurology on consult, Dr Ogden, help appreciated -Monitor on telemetry -EKG: NSR 71bpm, no ST-T wave changes -Troponins negative x 2 -CT head: suspect minimal chronic periventricular white matter ischemic changes (see full report) -Sacrum and coccyx xray - no fracture or dislocation -Echocardiogram - normal - Brain MRI - no acute findings - Carotid Dopplers: ordered, pending results - EEG - concern for right occipital waves * As per Dr. Ogden - will start Keppra 500mg PO BID, she will follow up with him as outpatient -Physical therapy ordered Diarrhea - resolved -Likely secondary to laxative use -Imodium 2mg ordered -Continue to monitor Hypokalemia -Likely secondary to GI loses -Replete as needed GI/DVT ppx -Protonix 40mg PO daily -Lovenox 40mg SC daily -------- Disposition: As per Dr. Hector Le, patient is medically stable for discharge after having the carotid dopplers done. She is to continue with Keppra 500mg by mouth twice a day until she is told by Dr. Ogden to no longer take. She is to continue her current medications as she was taking before. She is to follow up with PMD within 1-2 weeks for routine follow up care. --------- All management as per Dr. Hector Le, Rosina Sarabia DO PGY-2 Please review EMR as this is a brief summary of the patient's hospital course.
[2018-06-18] MEDS: Enoxaparin 40 mg Syringe SC SCH (10:02)
[2018-06-18] MEDS: Pantoprazole 40 mg EC Tab PO SCH (10:02)
[2018-06-18 11:38] LABS: ALB/GLOB RATIO 1.1 (1.0-2.1); ALBUMIN 3.4 g/dL (3.5-5.0); ALT/SGPT 19 U/L (9-52); AST/SGOT 27 U/L (14-36); BLOOD UREA NITROGEN 14 mg/dL (7-17); CALCIUM 8.1 mg/dl (8.6-10.4); GFR NON-AFRICAN AMERICAN > 60
[2018-06-18 12:05] LABS: BASO % 0.3 % (0.0-2.0); EOS # 0.3 K/uL (0.0-0.7); LYMPH # 1.3 K/uL (1.0-4.3); MEAN CELL VOLUME 98.6 fL (81.0-99.0); MEAN CORPUSCULAR HEMOGLOBIN 32.4 pg (27.0-31.0); MEAN CORPUSCULAR HGB CONC 32.8 g/dL (33.0-37.0); MONO # 0.5 K/uL (0.0-0.8); MONO % 8.4 % (0.0-10.0); NEUT # 3.8 K/uL (1.8-7.0); NEUT % 64.3 % (50.0-75.0); RBC 3.42 Mil/uL (3.80-5.20); RED CELL DISTRIBUTION WIDTH 14.2 % (11.5-14.5); WHITE BLOOD COUNT 5.9 K/uL (4.8-10.8)
[2018-06-18 12:07] LABS: HEMOGLOBIN 11.1 g/dL (11.0-16.0)
--- NOTE | 2018-06-18 14:29 | CON ---
DATE: 06/18/2018 LOCATION: Room #663, bed A. ATTENDING PHYSICIAN: Jacqui Le MD. REASON FOR CONSULTATION: New onset of syncope. CHIEF COMPLAINT: The patient was brought into [facility] following an episode of syncopal attack with preceding repeated bowel movement. From neurological point of view, I was called in to evaluate her for further management. HISTORY OF PRESENT ILLNESS: Ms. Halima Sharp is a 58-year-old right handed speaking female presenting with syncopal attack with preceding preparation for colonoscopy after taking laxatives, history of 15 episodes of diarrhea preceding this syncopal attack. No other witnessed seizure activities. No bladder incontinence . No trauma to the head following the syncopal attack. PAST MEDICAL HISTORY: Anxiety disorder and hypertension. PERSONAL HISTORY: Denies smoking or alcohol use. ALLERGIES: NO KNOWN ALLERGIES. REVIEW OF SYSTEMS: A 12-point system being reviewed. From neuro, new syncopal attack. MEDICATIONS: Celebrex, Cozaar, Klonopin, Lovenox, Microbid, Motrin, tamoxifen. PHYSICAL EXAMINATION VITAL SIGNS: Blood pressure 96/58, mean arterial pressure of 70, respiratory rate 18, temperature 97.9 with a pulse rate 79 and regular. NECK: Supple. No carotid bruits. HEART: Heart sounds regular. CHEST: Fair air entry. EXTREMITIES: No edema of legs. NEUROLOGICAL EXAMINATION: The patient is examined in the presence of the rock wool insulator, communicable only in [place]. She is awake, alert, and oriented to person, place and time. No anterograde amnesia. No confusion. No hallucination. CRANIAL NERVE EXAMINATION: Visual field intact. Pupil reactive to light. Extraocular movement normal. No nystagmus. No facial sensory deficit. No facial asymmetry. Hearing is normal. Tongue is midline. Good gag. Motor examination, outstretched hand with eyes closed, no drift noted. Power is symmetric on either side. Deep tendon reflexes, biceps, brachialis, triceps 1+ on either side. Both knees are trace. Both ankles are absent. Plantars are downgoing. Sensory examination, grossly intact. Coordination: [id number] test is intact. Gait, she is ambulatory independently. CONCLUSION: Halima Sharp as per neurological examination showing no lateralizing sign. However, new syncopal attack with history of sleep deprivation and consistent diarrhea, electrolyte imbalance could be the cause for her syncopal attack and electrolyte imbalance and hypoperfusion (low blood pressure) could be the cause for her syncopal attack. DIAGNOSTIC DATA: Her workup CT of the head reviewed, no acute pathology is noted. MRI of the brain showed no acute pathology. Electroencephalogram shows left occipital paroxysmal activities which is consistent with seizures. LABORATORY DATA: WBC 8.3, hemoglobin 14.4, hematocrit 42.7, platelet 257. Sodium 136, potassium 3.9, chloride 103, bicarbonate 25, BUN 20, creatinine 0.8, GFR more than 60, glucose 87, hemoglobin A1c 5.8, calcium 8.3, phosphorus 3.8, magnesium 2.1, prolactin 20.6. Lipid profiles are normal. ASSESSMENT AND PLAN: Though the other workups are negative, the syncopal attack may be related to her idiopathic paroxysmal activities in the electrophysiological studies. At this point I would like to put her on Keppra 500 mg twice a day and she should be following the neurologist for further workup including ambulatory video electroencephalogram. That would predict how long she should be on medication and she may need MRI of the brain with gadolinium knowing the fact she has been on medication for breast cancer. The patient will be followed closely with you. Bentley Ogden MD MTDD
--- NOTE | 2018-06-18 16:45 | VASCLAB ---
Date of service: 06/18/2018 PROCEDURE: Carotid Duplex Exam. HISTORY: dizziness, syncope COMPARISON: None available. TECHNIQUE: Grayscale and duplex Doppler evaluation of the cervical carotid and vertebral arteries were performed. The common carotid, carotid bifurcations and cervical Internal Carotid Artery (ICA) and proximal External Carotid Artery (ECA) were evaluated. The vertebral arteries were evaluated for gross patency and flow direction. Report prepared by Joao Angel, BS, RVT FINDINGS: RIGHT CAROTID ARTERIES: 1. Common Carotid Artery: No significant focal plaque formation of the right common carotid artery. Maximum Peak Systolic velocity: 64 cm/sec: End-diastolic velocity 14 cm/sec. 2. Carotid Bifurcation: plaque formation. Maximum Peak Systolic velocity: 61 cm/sec: End-diastolic velocity 14 cm/sec. 3. Internal Carotid Artery: Plaque description: 3.1. Proximal Segment: Peak systolic velocity 64 cm/sec: End-diastolic velocity 24 cm/sec - % stenosis 0-15% 3.2. Middle Segment: Peak systolic velocity 110 cm/sec: End-diastolic velocity 35 cm/sec - % stenosis 0-15% 3.3. Distal Segment: Peak systolic velocity 110 cm/sec: End-diastolic velocity 38 cm/sec - % stenosis 0-15% 4. External Carotid Artery: No significant focal plaque formation. Peak systolic velocity 145 cm/sec 5. ICA/CCA Ratio: 107 LEFT CAROTID ARTERIES: 1. Common Carotid Artery: No significant focal plaque formation of the left common carotid artery. Maximum Peak Systolic velocity: 66 cm/sec: End-diastolic velocity 18 cm/sec. 2. Carotid Bifurcation: plaque formation. Maximum Peak Systolic velocity: 78 cm/sec: End-diastolic velocity 25 cm/sec. 3. Internal Carotid Artery: Plaque description: 3.1. Proximal Segment: Peak systolic velocity 77 cm/sec: End-diastolic velocity 28 cm/sec - % stenosis 0-15% 3.2. Middle Segment: Peak systolic velocity 73 cm/sec: End-diastolic velocity 24 cm/sec - % stenosis 0-15% 3.3. Distal Segment: Peak systolic velocity 78 cm/sec: End-diastolic velocity 28 cm/sec - % stenosis 0-15% 4. External Carotid Artery: No significant focal plaque formation. Peak systolic velocity 112 cm/sec 5. ICA/CCA Ratio: 1.2 VERTEBRAL ARTERIES: 1. Right Vertebral Artery: The right vertebral artery flow direction is antegrade. 2. Left Vertebral Artery: The left vertebral artery flow direction is antegrade. OTHER FINDINGS: 1. Right Brachial Blood pressure: 128 mmHg. 2. Left Brachial Blood pressure: mmHg. 3. No atherosclerotic calcification present IMPRESSION: RIGHT: Duplex scan does not suggest hemodynamically significant stenosis of the right extracranial carotid arteries. LEFT: Duplex scan does not suggest hemodynamically significant stenosis of the left extracranial carotid arteries.
[2018-06-19] MEDS ORDERED: Pneumococcal 23-Valent Vaccine IM ONE (14:00)
== END 2018-06-18 12:41 | disposition home or self-care (01) ==
LOC: C.ER 02:44 → C.9E 06:13 → C.6T 06:33
PROVIDERS: ADMIT Internal Medicine Nephrology; ATTEND Internal Medicine Nephrology
DX: R42 Dizziness and giddiness (principal); I95.9 Hypotension, unspecified; E86.1 Hypovolemia; R55 Syncope and collapse; I10 Essential (primary) hypertension; E86.0 Dehydration; E87.6 Hypokalemia; Z72.820 Sleep deprivation; Z80.3 Family history of malignant neoplasm of breast; Z82.49 Family history of ischemic heart disease and other diseases of the circulatory system
CPT/HCPCS: 36415; 70450; 70551; 71045; 72220; 80048; 80053; 80061; 81001; 82330; 83036; 83735; 84100; 84146; 84484; 85025; 93005; 93306; 93880; 95812; 96360; 96365; 96366; 96374; 97116; 97162; 99285; G0378; G8978; G8979; J1650; J1885; J3480; J7030

== ENCOUNTER 2018-07-12 11:12 | Outpatient (CLI) | payer MEDICAID | END 2018-07-12 11:13 | disposition home or self-care (01) | LOC: C.MAMMO 11:12 | DX: Z12.31 Encounter for screening mammogram for malignant neoplasm of breast (principal) ==